=== PATIENT | female | born 1985 | race Caucasian/White ===

== ENCOUNTER 2019-03-12 05:52 | Outpatient (CLI) | payer BC ==
[~2019-03-12] VITALS: Ht 157.5 cm; Wt 64.0 kg
[2019-03-12] MEDS ORDERED: FEXO180T84 PO (11:55)
[2019-03-12] MEDS ORDERED: FLUT9.9S NSEACH (11:55)
== END 2019-03-12 12:00 | disposition home or self-care (01) ==
LOC: PREOP 05:52
PROVIDERS: ATTEND Podiatrist Foot & Ankle Surgery
DX: Z01.818 Encounter for other preprocedural examination (principal)

== ENCOUNTER 2019-03-19 11:41 | Day surgery (SDC) | payer BC ==
[~2019-03-19] VITALS: Ht 157.5 cm; Wt 64.0 kg
[2019-03-19] VITALS (10 sets, daily range): BP systolic 91–112; BP diastolic 42–89
[~2019-03-19 11:41] MED LIST: FEXO180T84 PO; FLUT9.9S NSEACH
[2019-03-19] MEDS ORDERED: ceFAZolin INJECTION 1,000 MG in WATER (STERILE) FOR INJECTION 10 ML IV ONE (11:45)
[2019-03-19] MEDS ORDERED: DEXAMETHASONE 10 MG/ML (DECADRON) 1 ML VIAL ONE ×2 (11:57→12:04)
[2019-03-19] MEDS ORDERED: BUPIVACAINE 0.5% 30 ML (SENSORCAINE) VIAL ONE (11:57)
[2019-03-19] MEDS ORDERED: MIDAZOLAM 2 MG/2 ML (VERSED) VIAL ONE (12:04)
[2019-03-19] MEDS ORDERED: LIDOCAINE PF 2% 5 ML (XYLOCAINE) VIAL ONE (12:04)
[2019-03-19] MEDS ORDERED: fentaNYL INJECTION 100 MCG/2 ML AMP ONE ×2 (12:04→14:15)
[2019-03-19] MEDS ORDERED: SEVOFLURANE (ULTANE) 15 ML INHAL SOLN ONE ×4 (12:04→15:49)
[2019-03-19] MEDS ORDERED: proPOfol 200 MG/20 ML (DIPRIVAN) VIAL IV ONE (12:04)
[2019-03-19] MEDS ORDERED: ONDANSETRON 4 MG/2 ML (SDV) Z0FRAN ONE (12:04)
--- NOTE | 2019-03-19 12:39 | Progress Note-Pre Operative ---
Pre-Operative Progress Note H&P Reviewed The H&P was reviewed, patient examined and no changes noted. Date Seen by Provider: Mar 19, 2019 Time Seen by Provider: 12:38 Date H&P Reviewed: Mar 19, 2019 Time H&P Reviewed: 12:38 Pre-Operative Diagnosis: Hallux Valgus, metatarsal primus varus, right ARNULFO COLIN DPShayla Mar 19, 2019 12:39
[2019-03-19] MEDS: LACTATED RINGERS 1,000 ML IV PRN ×2 (12:55→13:20)
[2019-03-19] MEDS ORDERED: PHENYLEPHRINE 100 MCG/ML 10 ML (ANESTHESIA) SYR ONE (13:34)
[2019-03-19] MEDS ORDERED: LACTATED RINGERS 1,000 ML IV SCH (15:42)
--- NOTE | 2019-03-19 15:42 | Progress Note-Post Operative ---
Post-Operative Progess Note Surgeon (s)/Tiller Man (s) Surgeon ARNULFO COLIN DPM Tiller Man: None Pre-Operative Diagnosis Hallux Valgus, metatarsal primus varus, right Post-Operative Diagnosis Same Procedure & Operative Findings Date of Procedure 03/19/19 Procedure Performed/Findings Lapidus Bunionectomy, right Anesthesia Type General Estimated Blood Loss Estimated blood loss (mL): Minimal Specimens/Packing Specimens Removed None ARNULFO COLIN DPM Mar 19, 2019 15:42
[2019-03-19] MEDS ORDERED: ACHD5005 PO (15:45)
[2019-03-19] MEDS ORDERED: CEPH500C PO (15:45)
[2019-03-19] MEDS ORDERED: HYDROcodone/APAP 5 MG/325 MG (LORTAB) TAB PO PRN (15:45)
[2019-03-19] MEDS ORDERED: morphine INJ 10 MG/ML 1ML (SYR OR VIAL) ONE (15:57)
[2019-03-19] MEDS ORDERED: morphine INJ 10 MG/ML 1ML (SYR OR VIAL) IVP ONE (16:00)
[2019-03-19] MEDS ORDERED: fentaNYL INJECTION 100 MCG/2 ML AMP IVP ONE (16:00)
[2019-03-19] MEDS ORDERED: ONDANSETRON 4 MG/2 ML (SDV) Z0FRAN IVP PRN (16:00)
--- NOTE | 2019-03-19 16:12 | Diagnostic Imaging Report ---
INDICATION: Fluoroscopy for right foot surgery. FINDINGS: Fluoroscopy was provided in the OR during right foot surgery. 13 seconds of fluoroscopic time was utilized. Images of the right foot demonstrate plate and numerous screws transfixing the first tarsometatarsal joint. Alignment is anatomic. IMPRESSION: Fluoroscopy for right foot surgery. Dictated by: Dictated on workstation # [id number]
--- NOTE | 2019-03-19 16:40 | NUR ---
TO AMB SURG FROM PAR PER CART. ALERT, RATES RIGHT FOOT "PRESSURE" TYPE DISCOMFORT 2. COBAN WRAPPPED KERLIX DRESSING D/I, ELEVATED, ICE PACK AT ANKLE. ABLE TO FEEL PRESSURE TOUCH ON EXPOSED TOES. TOES PINK, WARM, CAP REFILL <3 SECONDS. PO FLUIDS AND CRACKERS PROVIDED.
--- NOTE | 2019-03-19 17:05 | Diagnostic Imaging Report ---
INDICATION: Postop bunionectomy. AP and lateral views of the right foot are obtained. Comparison made to intraoperative fluoroscopy views of earlier the same day. Plate and screws are seen across the first tarsometatarsal joint, status post fusion. There appear to be previous lucencies compatible with site of previous hardware in the first and second metatarsals. There is no unexpected foreign body post surgery. No acute bony abnormality otherwise seen. IMPRESSION: Status post fusion of first tarsometatarsal joint. Postop changes. No unexpected foreign body post surgery. Dictated by: Dictated on workstation # [id number]
[2019-03-19] MEDS ORDERED: HYDROcodone/APAP 5 MG/325 MG (LORTAB) TAB ONE (17:14)
--- NOTE | 2019-03-19 17:21 | NUR ---
LORTAB 5/325 MG, ONE TAB, GIVEN PO FOR RIGHT FOOT PAIN CONTROL/PAIN RATE OF 2. SPLINT SHOE APPLIED TO RIGHT FOOT, UP WITH ASSIST TO W/C, THEN TO BR, NON WEIGHT BEARING ON RIGHT FOOT. VOIDED, ASSIST BACK TO ROOM. PT HAS CRUTCHES AND SCOOTER AT HOME FOR USE AND REPORTS FEELING COMFORTABLE WITH USE OF BOTH.
--- NOTE | 2019-03-19 17:55 | NUR ---
UP AGAIN TO BR WITH ASSIST/WC TO VOID. RIGHT FOOT DISCOMFORT RATED 1. NO CHANGE IN SITE ASSESSMENT. STATES SHE IS READY FOR DISMISSAL.
--- NOTE | 2019-03-19 22:14 | OPERATIVE REPORT ---
DATE OF SERVICE: 03/19/2019 SURGEON: Rosalba Basurto DPM. PREOPERATIVE DIAGNOSES: Hallux abductovalgus, metatarsal primus varus, right foot. POSTOPERATIVE DIAGNOSES: Hallux abductovalgus, metatarsal primus varus, right foot. PROCEDURE: Lapidus bunionectomy, right foot. WOUND CLASS: Clean. ANESTHESIA: General. HEMOSTASIS: Pneumatic thigh tourniquet at 250 mmHg. INDICATIONS: This is a 34-year-old female who presents complaining of a painful bunion, right foot. Conservative therapy has met with unsatisfactory results and the patient is agreeable to surgical intervention after risks and complications were discussed at length. No guarantees were extended to the patient and she is willing to proceed. DESCRIPTION OF PROCEDURE: The patient was brought back to the operative table, placed in secure supine position. Appropriate timeout was performed. Pneumatic thigh tourniquet was placed on the right lower extremity over several layers of padding. The right foot was anesthetized utilizing 10 mL of 0.5% Marcaine injected in a Bello block to the right foot. The right foot was then prepped and draped in normal sterile manner. The right foot was then elevated, allowed to exsanguinate after which the tourniquet was inflated to 250 mmHg. Attention was then directed to the dorsal aspect of the first ray where a 5 cm longitudinal linear incision was created overlying the metatarsal cuneiform joint. The incision was deepened in the same plane with great care to identify and retract all vital neurovascular structures. All the necessary blood vessels were cauterized as encountered. The incision was deepened down to the capsular tissue medial to the extensor hallucis longus where a longitudinal capsulotomy was performed. The capsular tissue was reflected as well as the periosteum to the dorsal and medial aspect of the first metatarsal cuneiform joint area. Next, utilizing a power sagittal saw, the articular cartilage of the base of the first metatarsal as well as the distal aspect of the medial cuneiform was resected. The cut to the distal aspect of the medial cuneiform was perpendicular to the long axis of the second metatarsal. The cut to the base of the first metatarsal was perpendicular to its long axis median to first metatarsal. Once the articular cartilage was removed, fenestration of the distal medial cuneiform and base of the first metatarsal was performed with K-wire. The wound was flushed with copious amounts of normal saline. Excellent bony apposition was appreciated at this time with good reduction of the first intermetatarsal angle confirmed by C-arm. A temporary K-wire was driven from dorsal distal to plantar proximal across the arthrodesis site. Derotation was also performed with the metatarsalthe ses and the sesamoids were now visualized inferior to the first metatarsal head on the AP view that was performed with C-arm intraoperatively. Next, utilizing the [place] plating system, a right standard Lapidus plate was applied. The two proximal locking screws were 3.5 mm of 16 mm of length. Once these were applied, the interfragment screw was applied, it was a 3.5 mm screw of 42 mm of length. Next, the distal screws were applied two 14 mm length, there were 3.5 mm in diameter, both nonlocking to the medial distal plate. It should be noted that the plate was applied medially. A final distal inferior screw of the plate could not be accessed through the original incision and a supplementary incision was created to the medial plantar aspect of the base of the first metatarsal approximately 1 cm in length. Blunt dissection was carried out through the soft tissue down to the plate where a 3.5 x 16 mm in length locking screw was applied. Excellent bony apposition and fixation was appreciated at this time. The temporary K-wire fixation was withdrawn from the foot. X-ray intraoperative confirmed appropriate alignment and an excellent reduction of the first intermetatarsal angle. The wound was flushed with copious amounts of normal saline to both incisions. The incisions were then closed in layers. Deep closure was performed with 3-0 Vicryl, superficial with 4-0 Vicryl, skin closed with 4-0 Prolene in a horizontal mattress type stitch. Attention was then directed to the medial aspect of the right first metatarsal where a 2 cm longitudinal linear incision was created. The incision was deepened in the same plane with great care to identify and retract all vital neurovascular structures. All the necessary blood vessels were cauterized as encountered. The incision was deepened down to the capsular tissue where a longitudinal capsulotomy was performed exposing the hypertrophic medial eminence of the first metatarsal head, which was resected utilizing a power bur. The wound was flushed with copious amounts of normal saline. Closure was then performed in layers. Deep closure was performed with 3-0 Vicryl, superficial with 4-0 Vicryl, skin closed with 4-0 Prolene in a horizontal mattress type stitch. Postoperative injection consisted of 13 mL of 0.5% Marcaine injected in a Bello block. Postoperative injection also included 10 mg dexamethasone into the first intermetatarsal space. Postoperative dressing consisted of Betadine soaked Adaptic, sterile 4 x 4, sterile Kerlix all secured with a Coban wrap. The patient tolerated the anesthesia and procedure well, was transported from the operating room to the recovery area with vital signs stable and vascular status intact to all digits of the right foot. Postoperative instructions were given to the patient for nonweightbearing status to the right foot. She is to take cephalexin 3 times a day as instructed. She was also given a prescription for hydrocodone. We will see the patient back in 10 days in the office or sooner if necessary. Job ID: [id number] DocumentID: [id number] Dictated Date: 03/19/2019 15:56:05 Senior Software Quality Engineer Date: 03/19/2019 22:13:27 Dictated By: BETH MAR
== END 2019-03-19 17:55 | disposition home or self-care (01) ==
LOC: SDC 11:41
PROVIDERS: ATTEND Podiatrist Foot & Ankle Surgery
DX: M20.11 Hallux valgus (acquired), right foot (principal); M21.171 Varus deformity, not elsewhere classified, right ankle; F41.9 Anxiety disorder, unspecified; F31.9 Bipolar disorder, unspecified; D64.9 Anemia, unspecified; Z79.899 Other long term (current) drug therapy
CPT/HCPCS: 73620; 84703; 87081